=== PATIENT | male | born 1950 | race Caucasian/White ===

== ENCOUNTER → 2017-01-28 | Outpatient (CLI) | payer BC ==
--- NOTE | 2017-01-28 08:42 | US ---
EXAMINATION TYPE: US venous doppler duplex LE DATE OF EXAM: 01/28/2017 7:43 AM COMPARISON: NONE CLINICAL HISTORY: R60.0 Edema. Donte feet swelling for over 1 year, 2010 esophageal cancer, pt was on blood thinner in 2014 for awhile for hx blood clot in arm SIDE PERFORMED: DONTE Grayscale, color Doppler, spectral Doppler imaging performed of the deep veins of both lower extremit ies. Right Leg: no acute DVT seen Left Leg: Laminar low-level echoes present within the popliteal vein are nonocclusive. There is adequ ate compression. Remainder of the deep veins of both lower extremities show normal compressibility, color flow, Dopple r waveforms IMPRESSION: Findings within the popliteal vein could be related to valve or possibly remote deep gabe ous thrombosis with recanalization. No acute deep venous thrombosis is suspected but difficult to exc lude. Follow-up as indicated.
== END | disposition home or self-care (01) ==
LOC: RADUSWWP 07:05
PROVIDERS: ATTEND Family Medicine
DX: R60.0 Localized edema (principal)
CPT/HCPCS: 93970

== ENCOUNTER 2017-02-13 09:29 | Day surgery (SDC) | payer BC ==
[2017-02-08 15:02] VITALS: BMI 21.7
[~2017-02-13 09:29] MED LIST: LACTATED RINGERS 1,000 ML IV SCH
[2017-02-13 09:50] VITALS: RESP 16; TEMP 97.7
[2017-02-13] MEDS ORDERED: LIDOCAINE 1% 20 ML VIAL (10MG/ML) FOR IV START INTRADERMA ONE (09:56)
[2017-02-13] MEDS ORDERED: GLYCOPYRROLATE 0.2 MG/ML 2 ML VIAL ONE (10:24)
[2017-02-13] MEDS ORDERED: PROPOFOL 10 MG/ML 20 ML VIAL IV ONE (10:24)
[2017-02-13] MEDS ORDERED: LIDOCAINE 1% INJ 10MG/ML (20 ML MDV) ONE (10:24)
--- NOTE | 2017-02-13 10:50 | P.PCN ---
Date of Procedure: 02/13/17 Procedure(s) Performed: BRIEF HISTORY: Patient is a 66-year-old pleasant white male, scheduled for an elective colonoscopy as a part of evaluation of prior history of colon polyps. Last colonoscopy was 5 years ago. PROCEDURE PERFORMED: Colonoscopy with snare polypectomy . PREOPERATIVE DIAGNOSIS: history of colon polyps IV sedation per Anesthesia. PROCEDURE: After informed consent was obtained, the patient, was brought into the endoscopy unit. IV conscious sedation was administered by Anesthesia under continuous monitoring. Initially the Olympus CF-160 flexible video colonoscope was then inserted in the rectum, gradually advanced into the cecum without any difficulty. Careful examination was performed as the scope was gradually being withdrawn. Ileocecal valve and the appendiceal orifice were visualized and appeared normal. Prep was fair. Mucosa of the cecum, ascending colon, transverse colon, descending colon, sigmoid colon, and rectum appeared normal. in the proximal rectum there was a 1 cm polyp that was removed by snare polypectomy. Retroflexion was performed in the rectum and no lesions were seen. The patient tolerated the procedure well. IMPRESSION: 1 cm proximal rectal polyp status post polypectomy Rest of the colon appeared normal. RECOMMENDATIONS: Findings of this examination were discussed with the patient as well as her family. He was advised to follow with the biopsy results. If the biopsy shows a tubular adenoma he can have a repeat colonoscopy in 3-5 years
[2017-02-13 12:10] VITALS: BP 128/89; PULSE 63
--- NOTE | 2017-02-20 08:07 | CDI ---
There is a conflict regarding the sedation used during the procedure. Your procedure note states "IV conscious sedation was administered by Anesthesia", but the Anesthesia Record indicates General Anesthesia. Which type of sedation/ anesthesia was used during the procedure? Please clarify and document as an addendum to your op report. This information is needed for proper coding and billing. If you dont understand what is needed from you, please contact my coding file clerk, Marzena Jeff at [phone]. Thank you. HOLLY Womack
--- NOTE | 2017-03-11 13:24 | CDI ---
There is a conflict regarding the sedation used during the procedure. Your procedure note states "IV conscious sedation was administered by Anesthesia", but the Anesthesia Record indicates General Anesthesia. Which type of sedation/ anesthesia was used during the procedure? Please clarify and document as an addendum to your op report. This information is needed for proper coding and billing. If you don't understand what is needed from you, please contact my commercial sales manager, Marzena Jeff at [phone]. Thank you. HOLLY Womack
--- NOTE | 2017-03-27 11:52 | PCN ---
DATE OF SERVICE: 02/13/2017 ADDENDUM: General anesthesia was utilized instead of IV conscious sedation.
== END 2017-02-13 13:05 | disposition home or self-care (01) ==
LOC: ORWHC2ENDO 09:29
PROVIDERS: ATTEND Internal Medicine Gastroenterology
DX: Z12.11 Encounter for screening for malignant neoplasm of colon (principal); Z86.010 Personal history of colon polyps; D12.8 Benign neoplasm of rectum; K64.9 Unspecified hemorrhoids; Z85.01 Personal history of malignant neoplasm of esophagus; Z79.891 Long term (current) use of opiate analgesic; Z79.899 Other long term (current) drug therapy; Z88.5 Allergy status to narcotic agent; Z88.8 Allergy status to other drugs, medicaments and biological substances; Z87.891 Personal history of nicotine dependence
CPT/HCPCS: 88305; 45385; J2001; J2704

== ENCOUNTER → 2017-12-11 | Outpatient (CLI) | payer MEDICARE, OTHER ==
--- NOTE | 2017-12-12 17:42 | US ---
EXAMINATION TYPE: US pelvic limited DATE OF EXAM: 12/11/2017 COMPARISON: CT 2018 CLINICAL HISTORY: R33.9 Urine rentention; patient stated doesn't drink enough water; had sepsis after hernia rupture/surgery 2.5 years ago Pre void bladder volume = 74.6ml and patient was unable to void for post void measure. Bilateral ure teral jets were seen. Internal, mobile bladder echoes are noted within posteriorly. Bowel is noted anteriorly at prior pelvic wall incision: see CT. IMPRESSION: 1. Urinary retention. Patient was unable to void at 74.6 mm within urinary bladder at the time of the exam. 2. Suspected incisional bowel containing hernia anterior abdominal wall
== END | disposition home or self-care (01) ==
LOC: RADUSWWP 12:33
PROVIDERS: ATTEND Family Medicine
DX: R33.9 Retention of urine, unspecified (principal)
CPT/HCPCS: 76857

== ENCOUNTER → 2018-06-09 | Outpatient (CLI) | payer MEDICARE, OTHER ==
--- NOTE | 2018-06-09 22:22 | CT ---
EXAMINATION TYPE: CT ChestAbdPelvis w con DATE OF EXAM: 06/09/2018 COMPARISON: CT abdomen and pelvis 11/20/2017 HISTORY: 68-year-old male follow-up esophageal cancer TECHNIQUE: Contiguous axial scanning of the chest, abdomen, and pelvis performed with IV Contrast, pa tient injected with 100 mL of Isovue 300. Delayed images through the kidneys were obtained. Coronal/s agittal reconstructions performed. CT DLP: 479.9 mGycm Automated exposure control for dose reduction was used. FINDINGS: Chest: Heart normal size with small anterior pericardial effusion measuring 1.1 cm thick. Aorta normal caliber with conventional origin of the right anatomy. There are postsurgical changes of esophagectomy with a gastric pull-through. Some calcified paratrach eal lymph nodes suggest sequela of prior granulomatous disease. No thoracic lymphadenopathy by CT siz e criteria. Some stranding atelectasis at the posterior left base. No consolidation or pleural effusion. Mild emp hysematous changes noted. ABDOMEN: No focal liver lesion or biliary ductal dilatation. Portal venous system is patent. Gallbladder, adrenal glands, kidneys, spleen, atrophic pancreas show no gross abnormality. Mild to moderate atherosclerotic calcifications within the abdominal aorta and iliac arteries. No dilated small bowel, free fluid, or free air. Paucity intra-abdominal fat limits assessment for lymphadenopathy. No obvious mesenteric or retroperi toneal lymphadenopathy identified. Tiny 1.2 cm wide left paramedian omental fat-containing hernia. There is also rectus diastases in the periumbilical region measuring 4.0 cm wide with bulging opacified small bowel loops. Oral contrast has progressed to the distal transverse colon. There is mild to moderate stool. No pipe colonic inflammatory change. Pelvis: Suggestion of prior surgery along the inguinal regions. Urine distended. Mild circumferential bladder wall thickening. Multiple pelvic phleboliths. No abnormal fluid collection in the pelvis or evidence of pelvic lymphadenopathy. Bones: Mild degenerative changes of the hips. Levoconvex scoliosis centered along the upper lumbar spine wit h degenerative changes throughout the lumbar spine. No osseous destructive process. IMPRESSION: 1. STATUS POST ESOPHAGECTOMY WITH GASTRIC PULL-THROUGH. NO EVIDENCE FOR METASTATIC DISEASE. 2. INCIDENTAL: SMALL ANTERIOR PERICARDIAL EFFUSION, TINY 1.2 CM LEFT PARAMEDIAN FATTY PERIUMBILICAL H ERNIA, 4.0 CM WIDE RECTUS DIASTASES WITH BULGING SMALL BOWEL LOOPS, AND MILD CIRCUMFERENTIAL BLADDER WALL THICKENING WHICH COULD REPRESENT CHRONIC BLADDER HYPERTROPHY OR CYSTITIS.
== END | disposition home or self-care (01) ==
LOC: RADCTMAIN 14:08
PROVIDERS: ATTEND Internal Medicine Hematology & Oncology
DX: K42.9 Umbilical hernia without obstruction or gangrene (principal); N32.89 Other specified disorders of bladder; I31.3 Pericardial effusion (noninflammatory); C15.9 Malignant neoplasm of esophagus, unspecified; Z90.49 Acquired absence of other specified parts of digestive tract
CPT/HCPCS: 82565; 84520; 71260; 74177; 36415; Q9967

== ENCOUNTER 2018-09-24 12:16 | Emergency (ER) | payer MEDICARE, OTHER ==
[2018-09-24 12:33] VITALS: RESP 18
--- NOTE | 2018-09-24 12:55 | ED ---
General Adult HPI - General Chief complaint: Abdominal Pain Stated complaint: blood in urine Time Seen by Provider: 09/24/18 12:20 Source: patient, family, RN notes reviewed Mode of arrival: wheelchair Limitations: no limitations - History of Present Illness Initial comments: This is a 68-year-old male who presents to the emergency department with a past medical history significant for severe sepsis 3 years ago for which she had multiple surgeries including abdominal surgery. Patient states ever since that time he's had abdominal pain. Patient states 2 days ago he had some hematuria and yesterday he went to see his primary medical care doctor they didn't x-ray and he got a call today to come to the emergency department because they saw something on the x-ray he thought he may need a CAT scan. Patient denies any new symptoms aside from the hematuria. Patient states he had chest pain a few days ago and states he has had since but he gets it on a regular basis as well. Patient denies any vomiting or nausea or diarrhea. Patient denies any shortness of breath or palpitations per patient denies any lightheadedness or dizziness. Patient denies any recent injury trauma. Patient denies any back pain. - Related Data Home Medications Medication Instructions Recorded Confirmed Diazepam [Valium] 10 mg PO BID 02/08/17 09/24/18 Mirtazapine [Remeron] 15 mg PO HS 02/08/17 09/24/18 oxyCODONE ER [OxyCONTIN] 10 mg PO TID 11/20/17 09/24/18 Ciprofloxacin HCl [Cipro] 250 mg PO Q12HR 09/24/18 09/24/18 Naloxegol Oxalate [Movantik] 12.5 mg PO DAILY 09/24/18 09/24/18 Sennosides [Senna] 8.6 mg PO DAILY 09/24/18 09/24/18 Previous Rx's Medication Instructions Recorded Morphine Sulfate ER [Ms Contin] 30 mg PO Q8H #30 tablet 04/27/15 Allergies Allergy/AdvReac Type Severity Reaction Status Date / Time codeine Allergy Unknown Itching Verified 09/24/18 12:51 alprazolam [From Xanax] Allergy Unknown Verified 09/24/18 12:51 Review of Systems ROS Statement: Those systems with pertinent positive or pertinent negative responses have been documented in the HPI. ROS Other: All systems not noted in ROS Statement are negative. Past Medical History Past Medical History: Cancer, Chest Pain / Angina, Hypertension, Osteoarthritis (OA) Additional Past Medical History / Comment(s): ESOPHAGEAL CANCER WITH CHEMO., HX OF COLON POLYP., BACK PAIN AND ARTHRITIS KNEES., STATES BILATERAL NUMBNESS IN FEET, NUMBNESS LEFT LEG-STATES APPT IN FEBRUARY WITH DR BUSH. , STATES STRESS TEST SCHEDULED WITH DR. CROCKETT IN FEBRUARY., PROBLEMS WITH CONSTIPATION. , USES A CANE AND WALKER., HX OF INCARCERATED INGUINAL HERNIA WITH PERITONITIS AND GANGRENE (2014) History of Any Multi-Drug Resistant Organisms: MRSA Date of last positivie culture/infection: 2016 MDRO Source:: bowel Past Surgical History: Hernia Repair, Orthopedic Surgery Additional Past Surgical History / Comment(s): PARIS KNEE SURGERY, CARPAL TUNNEL, ESOPHAGEAL RESECTION, INCARCERATED INGUINAL HERNIA WITH PERITONITIS AND MULTIPLE ABD SURGERIES FOR GANGRENE.(2014), SURGERY FOR NECROTIC SCOTAL SKIN. Past Anesthesia/Blood Transfusion Reactions: No Reported Reaction Past Psychological History: Anxiety, Depression Smoking Status: Former smoker Past Alcohol Use History: None Reported Past Drug Use History: Marijuana - Past Family History Mother Family Medical History: Congestive Heart Failure (CHF) Additional Family Medical History / Comment(s): Emphysema Father Family Medical History: Myocardial Infarction ([place]) Additional Family Medical History / Comment(s): of Heart attack General Exam - General Exam Comments Initial Comments: GENERAL: Patient is well-developed and well-nourished. Patient is nontoxic and well- hydrated and is in no acute distress. ENT: Neck is soft and supple. No significant lymphadenopathy is noted. Oropharynx is clear. Moist mucous membranes. Neck has full range of motion without eliciting any pain. EYES: The sclera were anicteric and conjunctiva were pink and moist. Extraocular movements were intact and pupils were equal round and reactive to light. Eyelids were unremarkable. PULMONARY: Unlabored respirations. Good breath sounds bilaterally. No audible rales rhonchi or wheezing was noted. CARDIOVASCULAR: There is a regular rate and rhythm without any murmurs gallops or rubs. ABDOMEN: Soft and nontender with normal bowel sounds. No palpable organomegaly was noted. There is no palpable pulsatile mass. GENITALIA: Normal exam SKIN: Skin is clear with no lesions or rashes and otherwise unremarkable. NEUROLOGIC: Patient is alert and oriented x3. Cranial nerves II through XII are grossly intact. Motor and sensory are also intact. Normal speech, volume and content. Symmetrical smile. MUSCULOSKELETAL: Normal extremities with adequate strength and full range of motion. LYMPHATICS: No significant lymphadenopathy is noted PSYCHIATRIC: Normal psychiatric evaluation. Limitations: no limitations Course Vital Signs 09/24/18 09/24/18 09/24/18 12:28 13:00 13:30 Temperature 97.5 F L Pulse Rate 59 L 50 L 49 L Respiratory 18 18 18 Rate Blood Pressure 118/79 144/97 141/96 O2 Sat by Pulse 97 97 95 Oximetry 09/24/18 09/24/18 09/24/18 14:00 14:30 15:00 Temperature Pulse Rate 49 L 53 L 57 L Respiratory 18 19 18 Rate Blood Pressure 139/87 129/78 129/77 O2 Sat by Pulse 97 96 Oximetry 09/24/18 09/24/18 09/24/18 16:00 16:30 17:00 Temperature Pulse Rate 62 59 L 62 Respiratory 18 18 18 Rate Blood Pressure 141/82 136/91 131/82 O2 Sat by Pulse 96 96 96 Oximetry Medical Decision Making - Medical Decision Making EKG shows sinus bradycardia 51 bpm [place] interval is on a 64 QRS is 80 QT intervals 454 QTC is 418. Patient's EKG shows no ST segment elevation or depression or T wave abnormalities are noted. CT of the abdomen showed no acute abnormality. Patient did state that his pain was all chronic and the only reason he initially was seen was because of hematuria and sensory is urine is clean he was comfortable going home. - Lab Data Result diagrams: 09/24/18 13:44 09/24/18 13:44 Lab Results 09/24/18 09/24/18 09/24/18 Range/Units 13:44 13:44 13:44 WBC 4.6 (3.8-10.6) k/uL RBC 4.85 (4.30-5.90) m/uL Hgb 14.9 (13.0-17.5) gm/dL Hct 46.1 (39.0-53.0) % MCV 94.9 (80.0-100.0) fL MCH 30.8 (25.0-35.0) pg MCHC 32.4 (31.0-37.0) g/dL RDW 13.1 (11.5-15.5) % Plt Count 194 (150-450) k/uL Neutrophils % 69 % Lymphocytes % 22 % Monocytes % 5 % Eosinophils % 2 % Basophils % 0 % Neutrophils # 3.2 (1.3-7.7) k/uL Lymphocytes # 1.0 (1.0-4.8) k/uL Monocytes # 0.2 (0-1.0) k/uL Eosinophils # 0.1 (0-0.7) k/uL Basophils # 0.0 (0-0.2) k/uL Sodium 140 (137-145) mmol/L Potassium 4.9 (3.5-5.1) mmol/L Chloride 106 (98-107) mmol/L Carbon Dioxide 29 (22-30) mmol/L Anion Gap 5 mmol/L BUN 27 H (9-20) mg/dL Creatinine 1.41 H (0.66-1.25) mg/dL Est GFR (CKD-EPI)AfAm 60 (>60 ml/min/1.73 sqM) Est GFR (CKD-EPI)NonAf 52 (>60 ml/min/1.73 sqM) Glucose 91 (74-99) mg/dL Calcium 9.3 (8.4-10.2) mg/dL Total Bilirubin 0.6 (0.2-1.3) mg/dL AST 42 (17-59) U/L ALT 36 (21-72) U/L Alkaline Phosphatase 57 (38-126) U/L Troponin I <0.012 (0.000-0.034) ng/mL Total Protein 6.6 (6.3-8.2) g/dL Albumin 3.6 (3.5-5.0) g/dL Amylase 63 (30-110) U/L Lipase 48 (23-300) U/L Urine Color Urine Appearance (Clear) Urine pH (5.0-8.0) Ur Specific [place] (1.001-1.035) Urine Protein (Negative) Urine Glucose (UA) (Negative) Urine Ketones (Negative) Urine Blood (Negative) Urine Nitrite (Negative) Urine Bilirubin (Negative) Urine Urobilinogen (<2.0) mg/dL Ur Leukocyte Esterase (Negative) Urine RBC (0-5) /hpf Urine WBC (0-5) /hpf Urine Mucus (None) /hpf 09/24/18 Range/Units 16:10 WBC (3.8-10.6) k/uL RBC (4.30-5.90) m/uL Hgb (13.0-17.5) gm/dL Hct (39.0-53.0) % MCV (80.0-100.0) fL MCH (25.0-35.0) pg MCHC (31.0-37.0) g/dL RDW (11.5-15.5) % Plt Count (150-450) k/uL Neutrophils % % Lymphocytes % % Monocytes % % Eosinophils % % Basophils % % Neutrophils # (1.3-7.7) k/uL Lymphocytes # (1.0-4.8) k/uL Monocytes # (0-1.0) k/uL Eosinophils # (0-0.7) k/uL Basophils # (0-0.2) k/uL Sodium (137-145) mmol/L Potassium (3.5-5.1) mmol/L Chloride (98-107) mmol/L Carbon Dioxide (22-30) mmol/L Anion Gap mmol/L BUN (9-20) mg/dL Creatinine (0.66-1.25) mg/dL Est GFR (CKD-EPI)AfAm (>60 ml/min/1.73 sqM) Est GFR (CKD-EPI)NonAf (>60 ml/min/1.73 sqM) Glucose (74-99) mg/dL Calcium (8.4-10.2) mg/dL Total Bilirubin (0.2-1.3) mg/dL AST (17-59) U/L ALT (21-72) U/L Alkaline Phosphatase (38-126) U/L Troponin I (0.000-0.034) ng/mL Total Protein (6.3-8.2) g/dL Albumin (3.5-5.0) g/dL Amylase (30-110) U/L Lipase (23-300) U/L Urine Color Yellow Urine Appearance Cloudy (Clear) Urine pH 6.0 (5.0-8.0) Ur Specific [place] 1.023 (1.001-1.035) Urine Protein Trace H (Negative) Urine Glucose (UA) Negative (Negative) Urine Ketones Negative (Negative) Urine Blood Negative (Negative) Urine Nitrite Negative (Negative) Urine Bilirubin Negative (Negative) Urine Urobilinogen 2.0 (<2.0) mg/dL Ur Leukocyte Esterase Negative (Negative) Urine RBC 5 (0-5) /hpf Urine WBC 17 H (0-5) /hpf Urine Mucus Rare H (None) /hpf Disposition Clinical Impression: Chronic abdominal pain, Hematuria Disposition: HOME SELF-CARE Instructions: Abdominal Pain (ED) Is patient prescribed a controlled substance at d/c from ED?: No Referrals: Juni Sotelo DO [Primary Care Provider] - 1-2 days Time of Disposition: 17:26
[2018-09-24 14:02] LABS: Basophils % (A) 0 %; Eosinophils # (A) 0.1 k/uL (0-0.7); Eosinophils % (A) 2 %; HCT 46.1 % (39.0-53.0); HGB 14.9 gm/dL (13.0-17.5); Lymphocytes % (A) 22 %; MCH 30.8 pg (25.0-35.0); MCHC 32.4 g/dL (31.0-37.0); MCV 94.9 fL (80.0-100.0); Mean Platelet Volume 7.3; Monocytes # (A) 0.2 k/uL (0-1.0); Monocytes % (A) 5 %; Neutrophils # (A) 3.2 k/uL (1.3-7.7); Neutrophils % (A) 69 %; Platelet Count 194 k/uL (150-450); RBC 4.85 m/uL (4.30-5.90); RDW 13.1 % (11.5-15.5); WBC 4.6 k/uL (3.8-10.6)
[2018-09-24 14:23] LABS: Albumin 3.6 g/dL (3.5-5.0); Calcium 9.3 mg/dL (8.4-10.2); Potassium 4.9 mmol/L (3.5-5.1); Total Bilirubin 0.6 mg/dL (0.2-1.3); Total Protein 6.6 g/dL (6.3-8.2)
--- NOTE | 2018-09-24 16:00 | CT ---
EXAMINATION TYPE: CT abdomen pelvis w con DATE OF EXAM: 09/24/2018 COMPARISON: CT chest abdomen and pelvis June 09, 2018 HISTORY: Hematuria and dysuria. CT DLP: 547.8 mGycm, Automated Exposure Control for Dose Reduction was Utilized. CONTRAST: CT scan of the abdomen and pelvis is performed without oral but with IV Contrast, patient injected wi th 80 mL of Isovue 300. FINDINGS: LUNG BASES: There is worsening bibasilar atelectasis and/or scarring. LIVER/GB: Calcification or small calculus near gallbladder neck axial image 21 is stable.Gallbladder has distended margins similar to prior. PANCREAS: No significant abnormality is seen. SPLEEN: No significant abnormality is seen. ADRENALS: No significant abnormality is seen. KIDNEYS: There is symmetric cortical medullary uptake and excretion from both kidneys without evidenc e of hydronephrosis bilaterally. Bladder is mildly distended without intraluminal calculus or mass. BOWEL: Surgical changes from esophagectomy and gastric pull-up procedure are partially imaged. Evalua tion of bowel is suboptimal as patient has very little intra-abdominal fat and lack of enteric contra st. Surgical sutures in the mid bowel anteriorly axial image 42 is noted. There is no suspicious smal l or large bowel dilatation clearly seen. PROSTATE/SEMINAL VESICLES: Scattered pelvic phleboliths are present. Heterogeneous slightly enlarged prostate is again seen. LYMPH NODES: No greater than 1cm abdominal or pelvic lymph nodes are appreciated. OSSEOUS STRUCTURES: Underlying levoconvex scoliosis is redemonstrated. There is moderate multilevel d isc space narrowing redemonstrated most prominent right L2-L3 level. Moderate narrowing and mild spur ring bilateral hip joints is seen. OTHER: Moderate atherosclerotic change of infrarenal abdominal aortic extends into branch vessels. An terior bulging of bowel or diastases containing bowel loops the umbilicus axial image 51 remains pres ent. Scar tissue right greater than left bilateral groin region is again seen. IMPRESSION: No renal stones or suspicious new renal masses. No significant new or acute finding seen to account for patient's symptoms of hematuria and dysuria.
[2018-09-24 16:31] LABS: Appearance,Urine Cloudy (Clear); Bilirubin,Urine Negative (Negative); Blood,Urine Negative (Negative); Color,Urine Yellow; Glucose,Urine (UA) Negative (Negative); Ketones,Urine Negative (Negative); Leukocyte Esterase,Urine Negative (Negative); Mucus,Urine Rare /hpf; Nitrite,Urine Negative (Negative); Protein,Urine Trace (Negative); RBC,Urine 5 /hpf (0-5); Specific Gravity,Urine 1.023 (1.001-1.035); WBC,Urine 17 /hpf (0-5)
[2018-09-24] MEDS ORDERED: MORPHINE SULFATE 2 MG/ML SYRINGE IVP STA (17:00)
[2018-09-24] MEDS ORDERED: MORPHINE SULFATE 4 MG/ML SYRINGE IVP STA (17:20)
[2018-09-24] MEDS ORDERED: diphenhydrAMINE 25 MG CAP PO STA (17:42)
[2018-09-24 18:18] VITALS: BP 133/85; PULSE 60; TEMP 98.4
== END 2018-09-24 18:18 | disposition home or self-care (01) ==
LOC: EC 12:16
DX: G89.29 Other chronic pain (principal); R10.9 Unspecified abdominal pain; R31.9 Hematuria, unspecified; R00.1 Bradycardia, unspecified; F41.9 Anxiety disorder, unspecified; F32.9 Major depressive disorder, single episode, unspecified; Z79.899 Other long term (current) drug therapy; Z88.5 Allergy status to narcotic agent; Z88.8 Allergy status to other drugs, medicaments and biological substances; Z85.01 Personal history of malignant neoplasm of esophagus; Z87.891 Personal history of nicotine dependence; Z98.890 Other specified postprocedural states
CPT/HCPCS: 99284; 96374; 36415; 93005; 80053; 82150; 83690; 84484; 85025; 81001; 87086; 74177; J2270 ×2; Q9967

== ENCOUNTER → 2018-12-31 | Outpatient (CLI) | payer MEDICARE, OTHER ==
--- NOTE | 2018-12-31 15:46 | CT ---
EXAMINATION TYPE: CT ChestAbdPelvis w con DATE OF EXAM: 12/31/2018 COMPARISON: 06/09/2018, 11/20/2017 HISTORY: 68-year-old male follow-up Esophageal cancer TECHNIQUE: Contiguous axial scanning of the chest, abdomen, and pelvis performed with IV Contrast, pa tient injected with 80 mL of Isovue 300. Delayed images through the kidneys were obtained. Coronal/sa gittal reconstructions performed. CT DLP: 1142 mGycm Automated exposure control for dose reduction was used. FINDINGS: Chest: Heart normal size. Small anterior pericardial effusion measures 8 mm, decreased from 06/09/2018. Ascending aorta ectatic at 3.8 cm. Conventional arch vessel branching anatomy. Stable calcified left lower paratracheal lymph node which may relate to prior granulomatous disease. Patient is status post esophagectomy with gastric pull-through. No thoracic lymphadenopathy. No consolidation or pleural effusion. Strandy bibasilar atelectasis. ABDOMEN: No focal liver lesion. Bile duct is mildly dilated at 7 mm, unchanged. Portal venous system appears p atent on delayed kidney images. Gallbladder, adrenal glands, kidneys, spleen, and mildly atrophic pancreas show no gross abnormality. Moderate atherosclerotic calcifications of the infrarenal abdominal aorta and iliac arteries. Paucity of intra-abdominal fat limits assessment for lymphadenopathy. No discrete mesenteric or retro peritoneal lymphadenopathy is identified. Tiny 1.2 cm fatty left periumbilical hernia. In the infraumbilical region, there is redemonstration of rectus diastases currently measuring 3.5 cm wide with herniating couple loops of small bowel measuring up to 5.1 cm wide, increased in the inter albino. Large stool burden. No pericolonic inflammatory change seen. Pelvis: Bladder urine distended. Prostate gland measures 3.6 cm wide. Pelvic phleboliths. No abnormal fluid c ollection in the pelvis or pelvic lymphadenopathy. Borderline sized 8 mm right external iliac chain l ymph node is unchanged likely reactive/post inflammatory. Possible scarring along the inguinal region s related to prior procedures. Bones: Mild degenerative changes at the hips. Levoconvex scoliosis centered at the upper lumbar spine. Varia ble multilevel degenerative disc disease particularly in the lumbar spine. No osseous destructive pro cess seen. IMPRESSION: 1. STATUS POST ESOPHAGECTOMY WITH GASTRIC PULL-THROUGH PROCEDURE. NO EVIDENCE FOR METASTATIC DISEASE. 2. INCIDENTAL: LARGE STOOL BURDEN, STABLE INFRAUMBILICAL RECTUS DIASTASES WITH A COUPLE SMALL BOWEL LOOPS HERNIATING THROUGH, AND A TINY 1.2 CM FATTY PERIUMBILICAL HERNIA.
== END | disposition home or self-care (01) ==
LOC: RADCTMAIN 12:49
PROVIDERS: ATTEND Internal Medicine Hematology & Oncology
DX: C15.9 Malignant neoplasm of esophagus, unspecified (principal); K42.9 Umbilical hernia without obstruction or gangrene; Z90.49 Acquired absence of other specified parts of digestive tract
CPT/HCPCS: 82565; 84520; 71260; 74177; 36415; Q9967

== ENCOUNTER → 2019-12-23 | Outpatient (CLI) | payer MEDICARE, OTHER ==
--- NOTE | 2019-12-23 15:29 | CT ---
EXAMINATION TYPE: CT abdomen pelvis w con DATE OF EXAM: 12/23/2019 COMPARISON: 12/31/2018 HISTORY: Unspecified abdominal pain. Hx esophageal ca. CT DLP: 448.50 mGycm CONTRAST: CT scan of the abdomen and pelvis is performed with Oral Contrast and with IV Contrast, patient injec boy with 100 mL of Isovue 300. FINDINGS: LUNG BASES-: No visible nodule. No infiltrate. LIVER/GB: No calcified gallstones. There is a 3.5 mm calculus in the region of the hepatic duct. Co mmon bile duct is free of calculi. No space occupying hepatic lesion. Biliary tree is of normal calib er. PANCREAS: No inflammation. No distinct mass. SPLEEN: No splenic enlargement. No lesion seen. ADRENALS: No nodule. No thickening. KIDNEYS/BLADDER: No hydronephrosis. No nephrolithiasis. No distinct renal mass. Urinary bladder g rossly unremarkable. BOWEL: There is evidence of gastric pull-through procedure. Normal appendix. Normal bowel caliber. No inflammation. Moderately severe fecal stasis noted. GENITAL ORGANS: No gross abnormality. LYMPH NODES: No greater than 1cm abdominal or pelvic lymph nodes are appreciated. AORTA: No significant abnormality. OSSEOUS STRUCTURES: No significant abnormality is seen. OTHER: Infraumbilical anterior abdominal wall hernia to the right of midline contains one or 2 segmen ts of small bowel unchanged from prior study. No definite evidence for obstruction or incarceration a t this time. IMPRESSION: 1. Anterior abdominal wall hernia infraumbilical region unchanged from prior study. 2. Moderate severe fecal stasis. 3. Calculus in the region of the common hepatic duct unchanged from prior study.
== END | disposition home or self-care (01) ==
LOC: RADCTMAIN 13:07
PROVIDERS: ATTEND Family Medicine
DX: K42.9 Umbilical hernia without obstruction or gangrene (principal); K80.50 Calculus of bile duct without cholangitis or cholecystitis without obstruction; R19.5 Other fecal abnormalities; R10.9 Unspecified abdominal pain
CPT/HCPCS: 82565; 84520; 74177; 36415; Q9967

== ENCOUNTER → 2019-12-31 | Outpatient (CLI) | payer MEDICARE, OTHER ==
--- NOTE | 2019-12-31 14:51 | US ---
LOWER EXTREMITY VENOUS INSUFFICIENCY CLINICAL HISTORY: L97.802 NONPRESSURE CHRONIC ULCER OF OTHER PART OF. right leg nonhealing wound. hx DVT- doesn't remember when or where. Not on blood thinners. SIDE PERFORMED: Bilateral 1) Color flow is present and patency is documented in the following vessels. No DVT or SVT is noted . EIV Common Femoral Vein Deep Femoral Vein Femoral Vein Popliteal Vein Proximal Calf Veins Greater Saph Vein Upper Small Saph Vein 2) There is venous reflux noted at the following venous levels: Right- slight right Deep Fem vein, Mid fem vein, distal popliteal vein and SSV. Left- EIV, Proximal popliteal vein, distal popliteal vein and SSV. 3) Incompetent perforators are noted at these levels: None IMPRESSION: 1. No sonographic evidence of deep venous thrombosis within either the bilateral lower extremities. 2. Venous reflux and multiple bilateral veins as detailed above. No incompetent perforators seen.
--- NOTE | 2020-01-06 10:42 | P.ARTDOP ---
Arterial Doppler LOWER EXTREMITY ARTERIAL DOPPLER: DATE OF SERVICE: 12/31/2019 Reason for study: Right calf ulcer. Doppler waveforms: Multiphasic bilaterally throughout. Pulse volume recording: Normal configuration. Pressure gradients: None. Ankle-brachial indices: Greater than 1 bilaterally. Toe brachial indices: 0.77 on the right, 1.22 on the left Impression: Normal study.
== END ==
LOC: RADUSWWP 13:22
PROVIDERS: ATTEND Thoracic Surgery (Cardiothoracic Vascular Surgery)
DX: I87.2 Venous insufficiency (chronic) (peripheral) (principal); S81.802A Unspecified open wound, left lower leg, initial encounter; L97.802 Non-pressure chronic ulcer of other part of unspecified lower leg with fat layer exposed
CPT/HCPCS: 93923; 93970

== ENCOUNTER 2020-01-27 15:49 | Emergency (ER) | payer MEDICARE, OTHER ==
--- NOTE | 2020-01-27 16:49 | ED ---
General Adult HPI - General Chief complaint: Recheck/Abnormal Lab/Rx Stated complaint: BP problems Time Seen by Provider: 01/27/20 16:05 Source: patient, family Mode of arrival: wheelchair Limitations: no limitations - History of Present Illness Initial comments: The patient is a 69-year-old male past medical history of esophageal cancer in remission, hypertension and lower extremity wounds presents emergency room with low heart rate. The patient was at the wound care clinic today. He has been going there once a week for the past 4 weeks in regards to Wound Center on his bilateral lower extremities. Each and the patient checks and they note that his heart rate is slow. He states he has been directed to come into the emergency room for evaluation for low heart rate. He denies any symptoms. Denies shortness of breath or chest pain. Denies any weakness. No recent medication changes. Does not take any cardiac medications. States he followed up with his care doctor who completed Holter monitoring. He does have an appointment for an echo on . He denies any chest pain. No cough or hemoptysis. No ripping or tearing sensation to his back. Denies any numbness or tingling in his lower extremity. Blood pressure has been stable. There are no alleviating, precipitating or modifying factors - Related Data Home Medications Medication Instructions Recorded Confirmed Diazepam [Valium] 10 mg PO BID 02/08/17 09/24/18 Mirtazapine [Remeron] 15 mg PO HS 02/08/17 09/24/18 oxyCODONE ER [OxyCONTIN] 10 mg PO TID 11/20/17 09/24/18 Ciprofloxacin HCl [Cipro] 250 mg PO Q12HR 09/24/18 09/24/18 Naloxegol Oxalate [Movantik] 12.5 mg PO DAILY 09/24/18 09/24/18 Sennosides [Senna] 8.6 mg PO DAILY 09/24/18 09/24/18 Previous Rx's Medication Instructions Recorded Morphine Sulfate ER [Ms Contin] 30 mg PO Q8H #30 tablet 04/27/15 Allergies Allergy/AdvReac Type Severity Reaction Status Date / Time codeine Allergy Unknown Itching Verified 09/24/18 12:51 alprazolam [From Xanax] Allergy Unknown Verified 09/24/18 12:51 Review of Systems ROS Statement: Those systems with pertinent positive or pertinent negative responses have been documented in the HPI. ROS Other: All systems not noted in ROS Statement are negative. Past Medical History Past Medical History: Cancer, Chest Pain / Angina, Hypertension, Osteoarthritis (OA) Additional Past Medical History / Comment(s): ESOPHAGEAL CANCER WITH CHEMO., HX OF COLON POLYP., BACK PAIN AND ARTHRITIS KNEES., STATES BILATERAL NUMBNESS IN FEET, NUMBNESS LEFT LEG-STATES APPT IN FEBRUARY WITH DR BUSH. , STATES STRESS TEST SCHEDULED WITH DR. CROCKETT IN FEBRUARY., PROBLEMS WITH CONSTIPATION. , USES A CANE AND WALKER., HX OF INCARCERATED INGUINAL HERNIA WITH PERITONITIS AND GANGRENE (2014) History of Any Multi-Drug Resistant Organisms: MRSA Date of last positivie culture/infection: 2015 MDRO Source:: bowel Past Surgical History: Hernia Repair, Orthopedic Surgery Additional Past Surgical History / Comment(s): PARIS KNEE SURGERY, CARPAL TUNNEL, ESOPHAGEAL RESECTION, INCARCERATED INGUINAL HERNIA WITH PERITONITIS AND MULTIPLE ABD SURGERIES FOR GANGRENE.(2014), SURGERY FOR NECROTIC SCOTAL SKIN. Past Anesthesia/Blood Transfusion Reactions: No Reported Reaction Past Psychological History: Anxiety, Depression Smoking Status: Former smoker Past Alcohol Use History: None Reported Past Drug Use History: Marijuana - Past Family History Mother Family Medical History: Congestive Heart Failure (CHF) Additional Family Medical History / Comment(s): Emphysema Father Family Medical History: Myocardial Infarction (MA) Additional Family Medical History / Comment(s): of Heart attack General Exam Limitations: no limitations General appearance: alert, in no apparent distress Head exam: Present: atraumatic, normocephalic, normal inspection Eye exam: Present: normal appearance, PERRL, EOMI. Absent: scleral icterus, conjunctival injection, periorbital swelling ENT exam: Present: normal exam, mucous membranes moist Neck exam: Present: normal inspection. Absent: tenderness, meningismus, lymphadenopathy Respiratory exam: Present: normal lung sounds bilaterally. Absent: respiratory distress, wheezes, rales, rhonchi, stridor Cardiovascular Exam: Present: normal rhythm, bradycardia, normal heart sounds. Absent: systolic murmur, diastolic murmur, rubs, gallop, clicks GI/Abdominal exam: Present: soft, normal bowel sounds. Absent: distended, tenderness, guarding, rebound, rigid Extremities exam: Present: normal inspection, full ROM, normal capillary refill. Absent: tenderness, pedal edema, joint swelling, calf tenderness Back exam: Present: normal inspection Neurological exam: Present: alert, oriented X3, CN II-XII intact Psychiatric exam: Present: normal affect, normal mood Skin exam: Present: warm, dry, intact, normal color. Absent: rash Course Vital Signs 01/27/20 01/27/20 01/27/20 16:03 16:17 17:51 Temperature 98.7 F 98.2 F Pulse Rate 51 L 52 L Pulse Rate [ 50 L Sitting Apical] Respiratory 19 18 Rate Blood Pressure 147/80 152/84 O2 Sat by Pulse 98 95 Oximetry EKG Findings - EKG Comments: EKG Findings:: EKG demonstrates a sinus bradycardia with a ventricular rate of 51. DC interval 158. QRS 72. QTC of 370. No acute ST segment elevations or depressions concerning for ischemic changes. No high degree block appreciated. Medical Decision Making - Medical Decision Making Upon the patient is placed in room 3. A thorough history and physical exam was performed. The patient does have a 12-lead EKG performed which demonstrates a sinus bradycardia. I did compare this to patient's previous EKGs which appear similar. The patient has normally been bradycardic when evaluated in the past. Blood pressure is stable. I did offer to conduct laboratory studies to ensure that his electronic lites are normal. The patient did agree to this. Magnesium mildly low at 1.8. Potassium 4.7. Bedside case monitor demonstrates a bigeminy rhythm which then will convert to a sinus bradycardia. The patient continues to remain symptomatic. At this time the patient feels comfortable with discharge home. I started him that he needs to follow-up for his echo later this week. Return to the emergency room should he have any symptoms of his low heart rate. The patient understood this and was discharged home in stable condition - Lab Data Result diagrams: 01/27/20 17:07 01/27/20 17:07 Lab Results 01/27/20 01/27/20 Range/Units 17:07 17:07 WBC 6.9 (3.8-10.6) k/uL RBC 5.08 (4.30-5.90) m/uL Hgb 15.6 (13.0-17.5) gm/dL Hct 48.1 (39.0-53.0) % MCV 94.8 (80.0-100.0) fL MCH 30.7 (25.0-35.0) pg MCHC 32.4 (31.0-37.0) g/dL RDW 12.8 (11.5-15.5) % Plt Count 183 (150-450) k/uL Neutrophils % 54 % Lymphocytes % 31 % Monocytes % 7 % Eosinophils % 5 % Basophils % 0 % Neutrophils # 3.8 (1.3-7.7) k/uL Lymphocytes # 2.1 (1.0-4.8) k/uL Monocytes # 0.5 (0-1.0) k/uL Eosinophils # 0.3 (0-0.7) k/uL Basophils # 0.0 (0-0.2) k/uL Sodium 138 (137-145) mmol/L Potassium 4.7 (3.5-5.1) mmol/L Chloride 104 (98-107) mmol/L Carbon Dioxide 28 (22-30) mmol/L Anion Gap 6 mmol/L BUN 27 H (9-20) mg/dL Creatinine 1.16 (0.66-1.25) mg/dL Est GFR (CKD-EPI)AfAm 76 (>60 ml/min/1.73 sqM) Est GFR (CKD-EPI)NonAf 65 (>60 ml/min/1.73 sqM) Glucose 86 (74-99) mg/dL Calcium 9.2 (8.4-10.2) mg/dL Magnesium 1.8 (1.6-2.3) mg/dL Total Bilirubin 0.6 (0.2-1.3) mg/dL AST 40 (17-59) U/L ALT 16 (4-49) U/L Alkaline Phosphatase 68 (38-126) U/L Total Protein 6.8 (6.3-8.2) g/dL Albumin 3.9 (3.5-5.0) g/dL TSH 1.380 (0.465-4.680) mIU/L Disposition Clinical Impression: Bradycardia Disposition: HOME SELF-CARE Condition: Stable Instructions (If sedation given, give patient instructions): Bradycardia (ED) Additional Instructions: Please follow-up with the carry out clerk and shelf stocker in regards to your slow heart rate. Have your echo completed later this week. Return to the emergency room for any new or worsening symptoms Is patient prescribed a controlled substance at d/c from ED?: No Referrals: Juni Sotelo DO [Primary Care Provider] - 1-2 days Time of Disposition: 17:48
[2020-01-27 17:31] LABS: Basophils % (A) 0 %; Eosinophils # (A) 0.3 k/uL (0-0.7); Eosinophils % (A) 5 %; HCT 48.1 % (39.0-53.0); HGB 15.6 gm/dL (13.0-17.5); Lymphocytes # (A) 2.1 k/uL (1.0-4.8); Lymphocytes % (A) 31 %; MCH 30.7 pg (25.0-35.0); MCHC 32.4 g/dL (31.0-37.0); MCV 94.8 fL (80.0-100.0); Mean Platelet Volume 8.1; Monocytes # (A) 0.5 k/uL (0-1.0); Monocytes % (A) 7 %; Neutrophils # (A) 3.8 k/uL (1.3-7.7); Neutrophils % (A) 54 %; Platelet Count 183 k/uL (150-450); RBC 5.08 m/uL (4.30-5.90); RDW 12.8 % (11.5-15.5); WBC 6.9 k/uL (3.8-10.6)
[2020-01-27 17:39] LABS: Albumin 3.9 g/dL (3.5-5.0); Calcium 9.2 mg/dL (8.4-10.2); Magnesium 1.8 mg/dL (1.6-2.3); Potassium 4.7 mmol/L (3.5-5.1); Total Bilirubin 0.6 mg/dL (0.2-1.3); Total Protein 6.8 g/dL (6.3-8.2)
[2020-01-27 17:58] VITALS: BP 152/84; PULSE 52; RESP 18; TEMP 98.2
== END 2020-01-27 18:02 | disposition home or self-care (01) ==
LOC: EC 15:49
DX: R00.1 Bradycardia, unspecified (principal); F32.9 Major depressive disorder, single episode, unspecified; F41.9 Anxiety disorder, unspecified; M17.0 Bilateral primary osteoarthritis of knee; E83.42 Hypomagnesemia; Z88.5 Allergy status to narcotic agent; Z88.8 Allergy status to other drugs, medicaments and biological substances; Z79.891 Long term (current) use of opiate analgesic; Z79.899 Other long term (current) drug therapy; Z87.891 Personal history of nicotine dependence; Z86.14 Personal history of Methicillin resistant Staphylococcus aureus infection; Z98.890 Other specified postprocedural states; Z90.49 Acquired absence of other specified parts of digestive tract
CPT/HCPCS: 36415; 80053; 83735; 84443; 85025; 93005; 99284

== ENCOUNTER → 2020-10-31 | Outpatient (CLI) | payer MEDICARE, OTHER ==
--- NOTE | 2020-10-31 13:01 | CT ---
EXAMINATION TYPE: CT ChestAbdPelvis w con DATE OF EXAM: 10/31/2020 COMPARISON: Prior CT December 23, 2019 and older CTs. Prior PET/CT March 22, 2012 HISTORY: Malignant neoplasm of Esophagus CT DLP: 529.9 mGycm. Automated Exposure Control for Dose Reduction was Utilized. CONTRAST: CT scan of the thorax, abdomen and pelvis is performed with oral and with IV Contrast, patient inject ed with 100 mL of Isovue 300. FINDINGS: LUNGS: Mild right greater than left bibasilar linear scarring and/or atelectasis. No new nodules or m asses. No pleural effusion or pneumothorax. MEDIASTINUM: There is more prominent calcified AP window lymph node axial image 22. Just inferior pos terior to this there is 2.3 x 2.0 cm low dense area axial image 23 through 25, slightly more rounded in contour coronal image 36. Difficult to get accurate Hounsfield values. NEw low Dense adenopathy n ot entirely excluded. Small pericardial effusion anteriorly up to 11 mm continues to slowly increase in size. No cardiomegaly. Surgical changes from esophagectomy and gastric pull-up redemonstrated LIVER/GB: Gallbladder redemonstrates distended margins. Stable mild extrahepatic biliary dilatation w ithout significant internal biliary dilatation.. PANCREAS: No significant abnormality is seen. SPLEEN: No significant abnormality is seen. ADRENALS: No significant abnormality is seen. KIDNEYS: Symmetric cortical medullary uptake and excretion. BOWEL: Oral contrast reaches the level of the right colon. No suspicious small or large bowel dilatat ion. Patient has virtual no intra-abdominal fat making evaluation suboptimal. Moderate to severe amou nt of colonic fecal material noted. GENITAL ORGANS: Scattered right greater than left bilateral pelvic phleboliths. LYMPH NODES: No greater than 1cm abdominal or pelvic lymph nodes are appreciated. OSSEOUS STRUCTURES: S-shaped scoliosis. Straightening of spine on sagittal images. Multilevel spondyl osis and disc space narrowing greatest at L2-L3 level. Moderate to severe narrowing and spurring of b oth hip joints. OTHER: Scar tissue bilateral groin region axial image 105 redemonstrated. Persistent rectus diastases along the vertical scar midline lower abdomen axial image 88. IMPRESSION: Small pericardial effusion continues to increase slightly in size. Increasing size calcif ied left AP window lymph node with possible adjacent enlarging low dense lymph node or mediastinal re cess fluid. Cannot exclude local neoplastic recurrence. Consider PET/CT to further evaluate. Persiste nt moderate to severe colonic fecal stasis. Overall no bowel obstruction.
== END | disposition home or self-care (01) ==
LOC: RADCTMAIN 10:02
PROVIDERS: ATTEND Internal Medicine Hematology & Oncology
DX: Z03.89 Encounter for observation for other suspected diseases and conditions ruled out (principal); C15.9 Malignant neoplasm of esophagus, unspecified; I31.3 Pericardial effusion (noninflammatory); I89.8 Other specified noninfective disorders of lymphatic vessels and lymph nodes; K59.89 Other specified functional intestinal disorders
CPT/HCPCS: 82565; 84520; 71260; 74177; 36415; Q9967 ×2

== ENCOUNTER → 2021-07-28 | Outpatient (CLI) | payer MEDICARE, OTHER ==
--- NOTE | 2021-07-31 07:46 | CT ---
EXAMINATION TYPE: CT neck chest w con DATE OF EXAM: 07/28/2021 COMPARISON: 10/31/2020, 12/31/2018 HISTORY: 71-year-old male left vocal cord paralysis. throat ca TECHNIQUE: Contiguous axial scanning of the soft tissues of the neck and chest performed with IV Cont rast, patient injected with 80cc mL of Isovue 300. Coronal/sagittal reconstructions performed. CT DLP: 625.7 mGycm Automated exposure control for dose reduction was used. FINDINGS: NECK: There is some asymmetry to the lower left piriform sinus and asymmetric medialization of the right vo loida fold. Visualized intracranial structures shows hypoplastic V4 segment right vertebral artery after the PICA takeoff. Leftward nasal septal deviation. Mild mucosal thickening ethmoid air cells and right maxill annabelle sinus. Orbits and globes are intact. Small amount of fluid trapped within the left mastoid air ce lls. Nasopharynx appears clear. Oropharynx appears clear. Epiglottis and prevertebral soft tissues appear satisfactory. The thyroid gland and submandibular glands are satisfactory. Parotid glands are somewhat atrophic. No cervical lymphadenopathy identified. Mild to moderate degenerative disc disease C4-C6 levels. CHEST: Heart normal size with slightly smaller small anterior pericardial effusion measuring 7 mm versus 11 mm, previously. Borderline ectatic ascending aorta at 3.5 cm. Conventional arch vessel branching anatomy. Enlarging partially calcified lito mass in the AP window/lower left paratracheal region measuring 5. 4 x 3.5 cm versus 4.2 x 2.3 cm, previously. Adjacent postsurgical changes of gastric pull-through after esophagectomy. A subcarinal lymph node is slightly thicker at 1.2 cm versus 9 mm, previously. Strandy areas of atelectasis and scarring in the mid and lower lungs, particularly the right. No cons olidation or pleural effusion. Moderate to large stool burden in the visualized upper abdomen. Some bowel postsurgical changes noted . Stable possible 5 mm biliary system calculus, axial image 59, unchanged from 10/31/2020. No abnorma l gallbladder distention. Bones: Slight S-shaped scoliotic curvature. No osseous destructive process. IMPRESSION: NECK: 1. Asymmetric lateral positioning of the left vocal fold compatible with vocal fold paralysis. 2. No suspicious mass or lymphadenopathy within the neck. 3. Some trapped fluid in the left mastoid air cells. Correlate for any mastoid pain to exclude mastoi ditis. CHEST: 4. Status post esophagectomy with gastric pull-through procedure. 5. Interval enlargement of a partially calcified AP window/lower left paratracheal lito mass at 5.4 x 3.5 cm (versus 4.2 x 2.3 cm, previously). Unable to exclude metastatic disease/progression. A subca rinal lymph node is also slightly thicker at 12 mm (versus 9 mm, previously). Given the patient's new symptoms, consider PET CT evaluation. 6. Stable strandy scarring and atelectasis in the lower lungs.
== END | disposition home or self-care (01) ==
LOC: RADCTMAIN 13:04
PROVIDERS: ATTEND Otolaryngology
DX: C14.0 Malignant neoplasm of pharynx, unspecified (principal); J39.8 Other specified diseases of upper respiratory tract
CPT/HCPCS: 82565; 84520; 70491; 71260; 36415; Q9967

== ENCOUNTER 2021-09-01 12:12 | Day surgery (SDC) | payer MEDICARE, OTHER ==
[2021-08-30 15:41] VITALS: BMI 23.2
[~2021-09-01 12:12] MED LIST changes: +ALBUTEROL NEB (CONC) 2.5 MG/0.5 ML INHALATION ONE; +LIDOCAINE 2% (PF) 20 MG/ML 5 ML VIAL INHALATION ONE; +LIDOCAINE VISCOUS 300 MG/15 ML CUP MUCOUS MEM ONE
[2021-09-01 12:48] VITALS: TEMP 97.1
[2021-09-01] MEDS ORDERED: SUCCINYLCHOLINE CHLORIDE 100 MG/5 ML SYR IV ONE (13:07)
[2021-09-01] MEDS ORDERED: fentaNYL (PF) 50 MCG/ML 2 ML AMP ONE (13:07)
[2021-09-01] MEDS ORDERED: LIDOCAINE 1% INJ 10MG/ML (20 ML MDV) ONE (13:07)
[2021-09-01] MEDS ORDERED: PROPOFOL 10 MG/ML 20 ML VIAL IV ONE (13:07)
--- NOTE | 2021-09-01 14:23 | P.PCN ---
Date of Procedure: 09/01/21 Preoperative Diagnosis: 1 mediastinal lymphadenopathy involving left paratracheal and subcarinal 2 history of esophageal cancer Postoperative Diagnosis: 1 mediastinal lymphadenopathy, calcified left paratracheal lymph node, enlarging in size, not evident on recent PET scan Procedure(s) Performed: 1 flexible bronchoscopy and airway inspection 2 endobronchial ultrasound, EBUS 3 EBUS guided is bronchial needle aspirate of subcarinal and left paratracheal lymph nodes Anesthesia: GETA Surgeon: Eloisa Schuster Estimated Blood Loss (ml): 0 Pathology: other Condition: stable Disposition: same day Operative Findings: After obtaining the consent the patient was taken to the OR suite he was intubated and put on MV by anesthesia then the scope was advanced to the ET tube until the trachea was seen and it was normal and then the shalom appears normal then the scope advanced to the left main and ARGENIS LB1-LB3 were seen and no endobronchial lesions were seen then the scope advanced to the lingula and the LB4 and LB5 were seen and no endobronchial lesions were seen the scope retracted and advanced to the left lower lobes LB6 to LB12 were seen one by one and no endobronchial lesions, then the scope was retracted back to the shalom and advanced to the Right main and RUL RB1 and RB2 and RB3 were seen one by one and no endobronchial lesions were seen the scope then retracted and advanced to the BI and RML RB4 and RB5 were seen and no endobronchial lesions were seen then it was retracted and advanced to the RLL RB6 to RB12 were seen one by one and no endobronchial lesions. Upon closer look, there was some mucosal irregularities in the distal left mainstem bronchus probably caused from the mediastinal lymphadenopathy in the left paratracheal lymphadenopathy. No significant narrowing. No bronchoconstriction. Then EBUS was used and the lymph nodes were examined. Direct measurement of the mediastinal lymph nodes revealed a 12x12 mm station 7 and a large lymph node in the 4L and there was a conglomeration of lymphadenopathy with some central calcification. At that point, using EBUS guidance, EBNA of the station 7 and station 4L lymph nodes was done. A total of 4 passes at station 4L lymph node and a total of 3 passes at station 7 lymph node was done . No major bleeding and the scope was removed and taken out in total the patient was send to the floor in stable condition
[2021-09-01] MEDS ORDERED: SODIUM CHLORIDE 0.9% 500 ML 500 ML IV ONE (14:25)
[2021-09-01] MEDS ORDERED: LACTATED RINGERS 1,000 ML IV SCH (15:05)
[2021-09-01 15:25] VITALS: PULSE 59; RESP 18
--- NOTE | 2021-09-01 15:33 | XR ---
EXAMINATION TYPE: XR chest 1V DATE OF EXAM: 09/01/2021 COMPARISON: 04/21/2015 HISTORY: Bronchoscopy TECHNIQUE: Single frontal view of the chest is obtained. FINDINGS: Right basilar subsegmental consolidation. Surgical clips epigastrium. Small right effusion . No overt failure. No pneumothorax. Heart size is normal. Arthropathy of the shoulders. Ectasia of t he aorta. Patient is rotated which may account for the prominence of the aortic knob. IMPRESSION: Right basilar infiltrate and small effusion. No sizable pneumothorax.
[2021-09-01 16:02] VITALS: BP 158/88
== END 2021-09-01 16:14 | disposition home or self-care (01) ==
LOC: ORWHC2ENDO 12:12
PROVIDERS: ATTEND Internal Medicine Critical Care Medicine
DX: R59.0 Localized enlarged lymph nodes (principal); Z85.01 Personal history of malignant neoplasm of esophagus; I10 Essential (primary) hypertension; M19.90 Unspecified osteoarthritis, unspecified site
CPT/HCPCS: 31652; 88305; 71045; J2001; J3010; J0330; J2704

== ENCOUNTER → 2021-10-25 | Outpatient (CLI) | payer MEDICARE, OTHER ==
--- NOTE | 2021-10-25 14:19 | CT ---
EXAMINATION TYPE: CT ChestAbdPelvis w con DATE OF EXAM: 10/25/2021 COMPARISON: CT chest 07/28/2021, CT chest abdomen pelvis 10/31/2020 HISTORY: Esophageal CA CT DLP: 1215 mGycm Automated exposure control for dose reduction was used. CONTRAST: CT scan of the chest, abdomen and pelvis is performed with Oral Contrast and with IV Contrast, patien t injected with 100ml mL of Isovue 300. FINDINGS: Patient is post esophagectomy and gastric pull-through. Retained secretions suspected withi n the pull-through. LUNGS: The lungs are grossly clear, there is no concerning parenchymal mass or nodule identified. T here is no pleural effusion or pneumothorax seen. The tracheobronchial tree is patent. MEDIASTINUM: Be enlarged low dense focus in the aorticopulmonary window region with associated calcif ication which may represent necrotic node is again seen measures 5.9 x 4.3 cm similar to prior exam m easuring on prior approximately 4 x 5.9 cm. Retrocaval pretracheal node has developed in the interva l and is enlarged at 17 x 27 mm. Small pericardial effusion is present similar to prior. AORTA: No significant abnormality is seen. OTHER: Postop changes. LIVER/GB: High density within the gallbladder may be due to vicarious excretion of contrast. Metallic density at the level of the trey shows a similar appearance and is indeterminate. PANCREAS: No significant abnormality is seen. SPLEEN: No significant abnormality is seen. ADRENALS: No significant abnormality is seen. KIDNEYS: No significant abnormality is seen. REPRODUCTIVE ORGANS: No gross abnormality seen. BOWEL: Retained fecal debris is present within the colon, correlate for fecal stasis. Bowel comes in close proximity to the skin in the midabdomen similar to prior exam, there may be an underlying umbi lical hernia FREE AIR: No Free Air visible. ASCITES: None seen. RETROPERITONEAL ADENOPATHY: No retroperitoneal adenopathy is seen. LYMPH NODES: No greater than 1 cm abdominal or pelvic lymph nodes are appreciated. URINARY BLADDER: No significant abnormality is seen. PELVIC ADENOPATHY: None visualized. OSSEOUS STRUCTURES: Spinal curvature is again noted. Degenerative disc changes are present in the vi sualized spine.. IMPRESSION: Enlarging mediastinal adenopathy.
== END | disposition home or self-care (01) ==
LOC: RADCTMAIN 09:15
PROVIDERS: ATTEND Internal Medicine Hematology & Oncology
DX: R59.0 Localized enlarged lymph nodes (principal)
CPT/HCPCS: 82565; 84520; 71260; 74177; 36415; Q9967

== ENCOUNTER 2021-11-30 11:20 | Day surgery (SDC) | payer MEDICARE, OTHER ==
[2021-11-29 11:39] VITALS: BMI 22.7
[~2021-11-30 11:20] MED LIST changes: +LIDOCAINE 1% (10MG/ML) FOR IV START INTRADERMA PRN
[2021-11-30] MEDS ORDERED: LIDOCAINE 1% INJ 10MG/ML (20 ML MDV) ONE (12:42)
[2021-11-30] MEDS ORDERED: PROPOFOL 10 MG/ML 20 ML VIAL IV ONE (12:42)
[2021-11-30] MEDS ORDERED: SUCCINYLCHOLINE CHLORIDE 100 MG/5 ML SYR IV ONE (12:42)
[2021-11-30] MEDS ORDERED: ROCURONIUM 10 MG/ML (5 ML VIAL) IV ONE (12:42)
[2021-11-30] MEDS ORDERED: fentaNYL (PF) 50 MCG/ML 2 ML AMP ONE (12:42)
[2021-11-30] MEDS ORDERED: GLYCOPYRROLATE 0.2 MG/ML 2 ML VIAL ONE (12:42)
[2021-11-30] MEDS ORDERED: NEOSTIGMINE 1 MG/ML 10 ML VIAL ONE (12:42)
--- NOTE | 2021-11-30 13:46 | P.PCN ---
Date of Procedure: 11/30/21 Operative Findings: Preoperative Diagnosis: 1 mediastinal lymphadenopathy involving right paratracheal and subcarinal 2 history of esophageal cancer Postoperative Diagnosis: 1 mediastinal lymphadenopathy, calcified right paratracheal lymph node Procedure(s) Performed: 1 flexible bronchoscopy and airway inspection 2 endobronchial ultrasound, EBUS 3 EBUS guided is bronchial needle aspirate of subcarinal and right paratracheal lymph nodes Anesthesia: ROSALESA Surgeon: Eloisa Schuster Estimated Blood Loss (ml): 0 Pathology: other Condition: stable Disposition: same day Operative Findings: After obtaining the consent the patient was taken to the OR suite he was intubated and put on MV by anesthesia then the scope was advanced to the ET tube until the trachea was seen and it was normal and then the shalom appears normal then the scope advanced to the left main and ARGENIS LB1-LB3 were seen and no endobronchial lesions were seen then the scope advanced to the lingula and the LB4 and LB5 were seen and no endobronchial lesions were seen the scope retracted and advanced to the left lower lobes LB6 to LB12 were seen one by one and no endobronchial lesions, then the scope was retracted back to the shalom and advanced to the Right main and RUL RB1 and RB2 and RB3 were seen one by one and no endobronchial lesions were seen the scope then retracted and advanced to the BI and RML RB4 and RB5 were seen and no endobronchial lesions were seen then it was retracted and advanced to the RLL RB6 to RB12 were seen one by one and no endobronchial lesions. Then EBUS was used and the lymph nodes were examined. Direct measurement of the mediastinal lymph nodes revealed a 17x21 mm station 7 and a large lymph node in the 4R and there was a conglomeration of lymphadenopathy with some central calcification measuring 24x 23mm . At that point, using EBUS guidance, EBNA of the station 7 and station 4L lymph nodes was done. A total of 4 passes at station 4R lymph node and a total of 4 passes at station 7 lymph node was done . No major bleeding and the scope was removed and taken out in total the patient was send to the floor in stable condition. Rapid on-site evaluation of the samples were done by pathology to document adequacy of the samples.
[2021-11-30 14:07] VITALS: TEMP 97.4
--- NOTE | 2021-11-30 14:23 | XR ---
EXAMINATION TYPE: XR chest 1V portable DATE OF EXAM: 11/30/2021 COMPARISON: 09/01/2021 HISTORY: Post bronchoscopy TECHNIQUE: Single frontal view of the chest is obtained. FINDINGS: There is ectasia of the aorta. Aortic aneurysm in the differential diagnosis. Surgical cli ps overlying the esophagus. Coarsened interstitium. Surgical clips in the epigastrium. Subsegmental l inear changes at both lung bases with Limited inspiration. No pneumothorax or sizable pleural effusio n. Heart size stable. IMPRESSION: 1. Correlate for chronic interstitial lung disease or interstitial pneumonitis. 2. Ectasia of the aorta with fullness in the mediastinum which likely is related to the reported hist ory of lymphadenopathy.
[2021-11-30 14:53] VITALS: RESP 20
[2021-11-30 15:11] VITALS: BP 156/81; PULSE 54
== END 2021-11-30 15:18 | disposition home or self-care (01) ==
LOC: ORWHC2ENDO 11:20
PROVIDERS: ATTEND Internal Medicine Critical Care Medicine
DX: C77.1 Secondary and unspecified malignant neoplasm of intrathoracic lymph nodes (principal); I89.8 Other specified noninfective disorders of lymphatic vessels and lymph nodes; I10 Essential (primary) hypertension; E78.5 Hyperlipidemia, unspecified; F32.A Depression, unspecified; Z85.01 Personal history of malignant neoplasm of esophagus; Z80.42 Family history of malignant neoplasm of prostate; Z87.891 Personal history of nicotine dependence; Z98.890 Other specified postprocedural states; Z79.891 Long term (current) use of opiate analgesic; Z79.899 Other long term (current) drug therapy
CPT/HCPCS: 88305; 88173; 88342; 88341; 71045; 31652; J2710; J2001; J3010; J0330; J2704

== ENCOUNTER 2021-12-19 10:05 | Day surgery (SDC) | payer MEDICARE, OTHER ==
[2021-12-15 11:43] VITALS: BMI 21.6
[~2021-12-19 10:05] MED LIST changes: -ALBUTEROL NEB (CONC) 2.5 MG/0.5 ML INHALATION ONE; -LIDOCAINE 2% (PF) 20 MG/ML 5 ML VIAL INHALATION ONE; -LIDOCAINE VISCOUS 300 MG/15 ML CUP MUCOUS MEM ONE
[2021-12-19 10:38] VITALS: RESP 16; TEMP 98.1
[2021-12-19] MEDS ORDERED: PROPOFOL 10 MG/ML 20 ML VIAL IV ONE (10:52)
[2021-12-19] MEDS ORDERED: LIDOCAINE 1% INJ 10MG/ML (20 ML MDV) ONE (10:52)
--- NOTE | 2021-12-19 10:58 | P.GSHP ---
History of Present Illness H&P Date: 12/19/21 Chief Complaint: Esophageal cancer 71-year-old male here today for EGD. Patient with history of worsening dysphagia. Patient with history of esophageal cancer 2011. Underwent surgical resection. Recently was found have metastatic mediastinal lymphadenopathy. Past Medical History Past Medical History: Cancer, Chest Pain / Angina, Hypertension, Osteoarthritis (OA), Skin Disorder Additional Past Medical History / Comment(s): ESOPHAGEAL CANCER WITH CHEMO- 2010., HX OF COLON POLYP., BACK PAIN AND ARTHRITIS KNEES., NUMBNESS IN FEET, NUMBNESS LEFT LEG. , USES A CANE AND WALKER., HX OF INCARCERATED INGUINAL HERNIA WITH PERITONITIS AND GANGRENE (2014), HOARSENESS, VASCULITIS, STATES OPEN SORE RIGHT CALF- on antibiotics. History of Any Multi-Drug Resistant Organisms: MRSA Date of last positivie culture/infection: 03/29/21 MDRO Source:: LEG Past Surgical History: Hernia Repair, Orthopedic Surgery Additional Past Surgical History / Comment(s): ELBOW SURGERY., [place] KNEE SURGERY, CARPAL TUNNEL, ESOPHAGEAL RESECTION, INCARCERATED INGUINAL HERNIA WITH PERITONITIS AND MULTIPLE ABD SURGERIES FOR GANGRENE.(2014), SURGERY FOR NECROTIC SCROTAL SKIN. bronchoscopy Past Anesthesia/Blood Transfusion Reactions: No Reported Reaction Past Psychological History: Anxiety, Depression Smoking Status: Former smoker Past Alcohol Use History: None Reported Additional Past Alcohol Use History / Comment(s): QUIT SMOKING 2009. SMOKED OVER 30 YEARS. SMOKED 2 PPD OR MORE. Past Drug Use History: Marijuana Additional Drug Use History / Comment(s): RARE MARIJUANA - Past Family History Mother Family Medical History: Congestive Heart Failure (CHF) Additional Family Medical History / Comment(s): Emphysema Father Family Medical History: Myocardial Infarction ([place]) Additional Family Medical History / Comment(s): of Heart attack Medications and Allergies Home Medications Medication Instructions Recorded Confirmed Type Diazepam [Valium] 10 mg PO 1200,2200 02/08/17 12/15/21 History Mirtazapine [Remeron] 45 mg PO HS 02/08/17 12/15/21 History oxyCODONE ER [OxyCONTIN] 10 mg PO 1200,2200 11/20/17 12/15/21 History Carvedilol [Coreg] 3.125 mg PO BID 08/30/21 12/15/21 History Cholecalciferol [Vitamin D3 (25 25 mcg PO DAILY 11/29/21 12/15/21 History Mcg = 1000 Iu)] Morphine Sulfate ER [Ms Contin] 30 mg PO Q8H PRN 12/15/21 12/15/21 History Minocycline HCl [Minocin] 100 mg PO BID 12/18/21 12/18/21 History Allergies Allergy/AdvReac Type Severity Reaction Status Date / Time codeine Allergy Unknown Itching Verified 12/19/21 10:25 alprazolam [From Xanax] Allergy Seizure Verified 12/19/21 10:25 Surgical - Exam Vital Signs Temp Pulse Resp BP Pulse Ox 98.1 F 55 L 16 165/93 96 12/19/21 10:30 12/19/21 10:30 12/19/21 10:30 12/19/21 10:30 12/19/21 10:30 Physical exam: General: Well-developed, malnourished HEENT: Normocephalic, sclerae nonicteric Abdomen: Nontender, nondistended Extremities: No edema Neuro: Alert and oriented Assessment and Plan (1) Esophageal cancer Narrative/Plan: Will proceed with EGD at this time. Current Visit: No Status: Acute Code(s): C15.9 - MALIGNANT NEOPLASM OF ESOPHAGUS, UNSPECIFIED SNOMED Code(s): 607410723
--- NOTE | 2021-12-19 11:07 | P.PCN ---
Date of Procedure: 12/19/21 Procedure(s) Performed: Preoperative Dx: Dysphagia, history of esophageal cancer Postoperative Dx: Mild gastritis Procedure: EGD Anesthesia: Sedation Endoscopist: Dr. Lisa Specimens: None Endoscopic Procedure: The patient was on the endoscopy table in the left decubitus position. The Olympus gastroscope was inserted into the oropharynx and passed under direct visualization to the region of the third portion of the duodenum. From that point the scope was slowly withdrawn inspecting all surfaces carefully. There were no neoplastic inflammatory or polypoid lesions throughout the duodenum. The pylorus was widely patent. The stomach was carefully inspected. There was mild gastritis present. A small amount of liquid and semisolid bilious contents were identified and evacuated. Patient likely has a slight degree of gastroparesis from his previous esophagectomy. The anastomosis between the proximal esophagus and stomach was widely patent. There were no inflammatory changes notified. No abnormalities suspicious for neoplasm was seen. The remainder the esophagus appeared normal. The patient was then taken to the recovery room in stable condition per anesthesia guidelines. Recommendations: Resume diet. Continue oncology workup.
[2021-12-19 11:33] VITALS: BP 136/87; PULSE 50
== END 2021-12-19 12:15 | disposition home or self-care (01) ==
LOC: ORWHC2ENDO 10:05
PROVIDERS: ATTEND Surgery
DX: K29.70 Gastritis, unspecified, without bleeding (principal); K31.84 Gastroparesis; E78.5 Hyperlipidemia, unspecified; Z87.891 Personal history of nicotine dependence; F32.A Depression, unspecified; F41.9 Anxiety disorder, unspecified; M17.0 Bilateral primary osteoarthritis of knee; R20.0 Anesthesia of skin; I77.6 Arteritis, unspecified; I10 Essential (primary) hypertension; Z92.21 Personal history of antineoplastic chemotherapy; Z85.01 Personal history of malignant neoplasm of esophagus; Z98.890 Other specified postprocedural states; Z86.010 Personal history of colon polyps; Z86.14 Personal history of Methicillin resistant Staphylococcus aureus infection; Z82.5 Family history of asthma and other chronic lower respiratory diseases; Z82.49 Family history of ischemic heart disease and other diseases of the circulatory system; Z90.49 Acquired absence of other specified parts of digestive tract; Z79.891 Long term (current) use of opiate analgesic; Z79.899 Other long term (current) drug therapy; Z88.5 Allergy status to narcotic agent; Z88.8 Allergy status to other drugs, medicaments and biological substances
CPT/HCPCS: 43235; J2001; J2704

== ENCOUNTER 2022-03-26 15:50 | Emergency (ER) | payer MEDICARE, OTHER ==
[2022-03-26 17:01] LABS: Anisocytosis Slight; Basophils % (A) 1 %; Eosinophils # (A) 0.1 k/uL (0-0.7); Eosinophils % (A) 3 %; HCT 38.6 % (39.0-53.0); HGB 12.3 gm/dL (13.0-17.5); Hypochromasia Slight; Lymphocytes % (A) 22 %; MCH 32.5 pg (25.0-35.0); MCHC 31.9 g/dL (31.0-37.0); MCV 101.8 fL (80.0-100.0); Macrocytosis Moderate; Monocytes # (A) 0.3 k/uL (0-1.0); Monocytes % (A) 7 %; Neutrophils # (A) 3.1 k/uL (1.3-7.7); Neutrophils % (A) 64 %; Platelet Count 203 k/uL (150-450); RBC 3.79 m/uL (4.30-5.90); RDW 17.8 % (11.5-15.5); WBC 4.8 k/uL (3.8-10.6)
[2022-03-26 17:20] LABS: Albumin 3.3 g/dL (3.5-5.0); Calcium 8.7 mg/dL (8.4-10.2); Potassium 5.3 mmol/L (3.5-5.1); Total Bilirubin 0.5 mg/dL (0.2-1.3); Total Protein 6.4 g/dL (6.3-8.2)
--- NOTE | 2022-03-26 18:05 | ED ---
Recheck HPI - General Chief Complaint: Recheck/Abnormal Lab/Rx Stated Complaint: High Potassium, Left arm numbness, Bed Sore Time Seen by Provider: 03/26/22 18:05 Source: patient, RN notes reviewed Mode of arrival: wheelchair Limitations: no limitations - History of Present Illness Initial Comments: Patient was sent in by his primary care physician for high potassium. Apparently her potassium level was greater than 6. Repeat laboratory work was ordered by the triage nurse.Patient having no symptoms nausea. Denies any shortness breath or chest pain. Patient does add that he has had a decubitus ulcer on his back which has been problematic for several months. His states that she he may have scraped it a few weeks ago and it's been having a hard time healing. Patient does when his back a lot and has a hard time sleeping in any other position. No fever or chills No headache, no fever or chills, no changes in vision or hearing, no sore throat or difficulty with speech, no neck pain, no chest pain or shortness of breath, no abdominal pain, no nausea or vomiting, no changes in urination or bowel movements, no numbness or tingling, no extremity pain, no skin rashes or lesions. - Related Data Home Medications Medication Instructions Recorded Confirmed Diazepam [Valium] 10 mg PO 1200,2200 02/08/17 12/15/21 Mirtazapine [Remeron] 45 mg PO HS 02/08/17 12/15/21 oxyCODONE ER [OxyCONTIN] 10 mg PO 1200,2200 11/20/17 12/15/21 Carvedilol [Coreg] 3.125 mg PO BID 08/30/21 12/15/21 Cholecalciferol [Vitamin D3 (25 25 mcg PO DAILY 11/29/21 12/15/21 Mcg = 1000 Iu)] Morphine Sulfate ER [Ms Contin] 30 mg PO Q8H PRN 12/15/21 12/15/21 Minocycline HCl [Minocin] 100 mg PO BID 12/18/21 12/18/21 Allergies Allergy/AdvReac Type Severity Reaction Status Date / Time codeine Allergy Unknown Itching Verified 03/26/22 16:48 alprazolam [From Xanax] Allergy Seizure Verified 03/26/22 16:48 Review of Systems ROS Statement: Those systems with pertinent positive or pertinent negative responses have been documented in the HPI. ROS Other: All systems not noted in ROS Statement are negative. Past Medical History Past Medical History: Cancer, Chest Pain / Angina, Hypertension, Osteoarthritis (OA), Skin Disorder Additional Past Medical History / Comment(s): ESOPHAGEAL CANCER WITH CHEMO-2010., HX OF COLON POLYP., BACK PAIN AND ARTHRITIS KNEES., NUMBNESS IN FEET, NUMBNESS LEFT LEG. , USES A CANE AND WALKER., HX OF INCARCERATED INGUINAL HERNIA WITH PERITONITIS AND GANGRENE (2014), HOARSENESS, VASCULITIS, STATES OPEN SORE RIGHT CALF- on antibiotics. History of Any Multi-Drug Resistant Organisms: MRSA Date of last positivie culture/infection: 03/29/21 MDRO Source:: LEG Past Surgical History: Hernia Repair, Orthopedic Surgery Additional Past Surgical History / Comment(s): ELBOW SURGERY., [place] KNEE SURGERY, CARPAL TUNNEL, ESOPHAGEAL RESECTION, INCARCERATED INGUINAL HERNIA WITH PERITONITIS AND MULTIPLE ABD SURGERIES FOR GANGRENE.(2014), SURGERY FOR NECROTIC SCROTAL SKIN. bronchoscopy Past Anesthesia/Blood Transfusion Reactions: No Reported Reaction Past Psychological History: Anxiety, Depression Smoking Status: Former smoker Past Alcohol Use History: None Reported Past Drug Use History: Marijuana - Past Family History Mother Family Medical History: Congestive Heart Failure (CHF) Additional Family Medical History / Comment(s): Emphysema Father Family Medical History: Myocardial Infarction ([place]) Additional Family Medical History / Comment(s): of Heart attack General Exam - General Exam Comments Initial Comments: This is a frail appearing 71-year-old male in no distress. Patient does not appear to be ill or toxic. Vital signs not currently documented by the RN. Limitations: no limitations General appearance: alert, in no apparent distress Head exam: Present: atraumatic, normocephalic, normal inspection Eye exam: Present: normal appearance, PERRL, EOMI. Absent: scleral icterus, conjunctival injection, periorbital swelling ENT exam: Present: normal exam, mucous membranes moist Neck exam: Present: normal inspection. Absent: tenderness, meningismus, lymphadenopathy Respiratory exam: Present: normal lung sounds bilaterally. Absent: respiratory distress, wheezes, rales, rhonchi, stridor Cardiovascular Exam: Present: regular rate, normal rhythm, normal heart sounds. Absent: systolic murmur, diastolic murmur, rubs, gallop, clicks GI/Abdominal exam: Present: soft, normal bowel sounds. Absent: distended, tenderness, guarding, rebound, rigid Extremities exam: Present: normal inspection, full ROM, normal capillary refill. Absent: tenderness, pedal edema, joint swelling, calf tenderness Back exam: Present: normal inspection Neurological exam: Present: alert, oriented X3, CN II-XII intact Psychiatric exam: Present: normal affect, normal mood Skin exam: Present: warm, dry, intact, normal color. Absent: rash Course Vital Signs 03/26/22 18:53 Temperature 98.6 F Pulse Rate 70 Respiratory 17 Rate Blood Pressure 138/81 O2 Sat by Pulse 97 Oximetry Medical Decision Making - Medical Decision Making We'll have the RN documented vital signs. Patient no distress otherwise. A long discussion with the patient regarding potassium, which causes and effects on the human body. Had a long discussion regarding decubitus ulcers and prevention. Patient was given instructions. We'll have the patient follow-up with his regular physician regarding the potassium of 5.3. Patient's renal function was stable. Patient was told to return to the ER for any signs or symptoms worsen. Told to return immediately if any other problems arise. All questions answered. Treatment plan discussed. Patient in agreement Every effort has been made to ensure accuracy of this dictation. However, due to the limitations of electronic medical records and dictation devices, errors in charting still occur. All findings discussed with the patient's spouse as well. The case was discussed in detail with ED attending physician. Presentation, findings, treatment plan discussed in detail. Dr. Valdes Vital signs stable, patient afebrile. - Lab Data Result diagrams: 03/26/22 16:52 03/26/22 16:52 Lab Results 03/26/22 03/26/22 Range/Units 16:52 16:52 WBC 4.8 (3.8-10.6) k/uL RBC 3.79 L (4.30-5.90) m/uL Hgb 12.3 L (13.0-17.5) gm/dL Hct 38.6 L (39.0-53.0) % MCV 101.8 H (80.0-100.0) fL MCH 32.5 (25.0-35.0) pg MCHC 31.9 (31.0-37.0) g/dL RDW 17.8 H (11.5-15.5) % Plt Count 203 (150-450) k/uL MPV 8.0 Neutrophils % 64 % Lymphocytes % 22 % Monocytes % 7 % Eosinophils % 3 % Basophils % 1 % Neutrophils # 3.1 (1.3-7.7) k/uL Lymphocytes # 1.0 (1.0-4.8) k/uL Monocytes # 0.3 (0-1.0) k/uL Eosinophils # 0.1 (0-0.7) k/uL Basophils # 0.0 (0-0.2) k/uL Hypochromasia Slight Anisocytosis Slight Macrocytosis Moderate Sodium 136 L (137-145) mmol/L Potassium 5.3 H (3.5-5.1) mmol/L Chloride 100 (98-107) mmol/L Carbon Dioxide 31 H (22-30) mmol/L Anion Gap 5 mmol/L BUN 32 H (9-20) mg/dL Creatinine 1.21 (0.66-1.25) mg/dL Est GFR (CKD-EPI)AfAm 70 (>60 ml/min/1.73 sqM) Est GFR (CKD-EPI)NonAf 61 (>60 ml/min/1.73 sqM) Glucose 94 (74-99) mg/dL Calcium 8.7 (8.4-10.2) mg/dL Total Bilirubin 0.5 (0.2-1.3) mg/dL AST 25 (17-59) U/L ALT 14 (4-49) U/L Alkaline Phosphatase 72 (38-126) U/L Total Protein 6.4 (6.3-8.2) g/dL Albumin 3.3 L (3.5-5.0) g/dL - EKG Data EKG Comments: EKG done at 6:10 PM and read by the ED attending physician reveals sinus rhythm with occasional PVCs. No evidence of acute ST or T-wave changes. Normal intervals. Normal axis. Disposition Clinical Impression: Hyperkalemia, Decubitus ulcer Disposition: HOME SELF-CARE Condition: Stable Instructions (If sedation given, give patient instructions): How to Prevent Pressure Injuries (ED), Hyperkalemia (ED) Additional Instructions: Call your regular physician in the morning for further guidance regarding the minimal elevation of potassium which was 5.3 today. Follow-up with your regular physician as directed. Return to the ER immediately if any symptoms worsen, new symptoms arise, or any other problems develop. Is patient prescribed a controlled substance at d/c from ED?: No Referrals: Juni Sotelo DO [Primary Care Provider] - 1-2 days Time of Disposition: 18:31
[2022-03-26] MEDS ORDERED: predniSONE 20 MG TAB PO STA (18:12)
[2022-03-26] MEDS ORDERED: tiZANidine 4 MG TAB PO STA (18:12)
[2022-03-26 18:53] VITALS: BP 138/81; PULSE 70; RESP 17; TEMP 98.6
== END 2022-03-26 19:28 | disposition home or self-care (01) ==
LOC: EC 15:50
DX: E87.5 Hyperkalemia (principal); L89.90 Pressure ulcer of unspecified site, unspecified stage; I10 Essential (primary) hypertension; F17.200 Nicotine dependence, unspecified, uncomplicated; Z82.49 Family history of ischemic heart disease and other diseases of the circulatory system; Z88.5 Allergy status to narcotic agent; Z88.2 Allergy status to sulfonamides
CPT/HCPCS: 36415; 80053; 85025; 93005

== ENCOUNTER → 2022-04-25 | Outpatient (CLI) | payer MEDICARE, OTHER ==
--- NOTE | 2022-04-25 13:02 | CT ---
"EXAMINATION TYPE: CT chest w con DATE OF EXAM: 04/25/2022 COMPARISON: CT dated 10/25/2021 HISTORY: Esophageal cancer CT DLP: 284 mGycm Automated exposure control for dose reduction was used. TECHNIQUE: CT scan of the chest is performed with IV Contrast, patient injected with 80 mL of Isovue 300. FINDINGS: LUNGS: Bilateral basal linear pulmonary atelectasis. Grossly unremarkable lungs otherwise. Patent tra sissy and main bronchi. No pleural effusion MEDIASTINUM: Previous esophagectomy and gastric pull-up surgery. The previously seen mediastinal lymp h nodes are less discrete today being replaced by a large infiltrating hypodense lesion involving the aortopulmonary window, the paratracheal location and the subcarinal location with calcification with in, roughly measuring 4.2 x 7.4 cm. This could represent pseudo-progression in a treated metastasis h owever true progression cannot be excluded. No pathologically enlarged hilar or axillary lymph nodes. Small pericardial effusion. No gross cardiomegaly. The ascending aorta is slightly dilated measuring 3.9 cm with dilated pulmonary trunk measuring 3.2 cm. OTHER: Newly seen multiple variable-sized small hepatic lesions measuring up to 19 mm in the right h epatic lobe, highly concerning for extensive hepatic metastasis. Suspected cystic duct stone measurin g 5 mm. Severe fecal loading of the visualized portion of the colon. No gross aggressive bone lesion. IMPRESSION: Pseudo versus true progression of the mediastinal lymphadenopathy as described above. Newly seen innu merable hepatic hypodensities, highly concerning for new hepatic metastatic lesions. Recommend furthe r PET scan assessment. Other findings as detailed above. A [place] level critical message alert has been initiated for Olive Mullen MD via the [facility] Com 36 0 | Critical Results System on 04/25/2022 12:59 PM. This message alert has been sent to Olive Mullen MD via the preferences provided by the clinician for the receipt of Radiology Critical Findings. [facility] [place] [id number]."
== END | disposition home or self-care (01) ==
LOC: RADCTMAIN 10:16
PROVIDERS: ATTEND Internal Medicine Hematology & Oncology
DX: C15.9 Malignant neoplasm of esophagus, unspecified (principal); C78.7 Secondary malignant neoplasm of liver and intrahepatic bile duct
CPT/HCPCS: 82565; 84520; 71260; 36415; Q9967